=== PATIENT | male | born 2000 | race Two or more races ===

== ENCOUNTER 2019-04-10 22:03 | Emergency (ER) | payer MEDICAID ==
[~2019-04-10] VITALS: Ht 180.3 cm; Wt 79.4 kg
--- NOTE | 2019-04-10 22:42 | NUR ---
BIBMOTHER C.O "HAVING ITCHING ALL OVER MY BODY" -SOB NOTED. AOX4. VSS AMBULATORY
[2019-04-10] MEDS ORDERED: predniSONE 20 MG TABLET ONE (22:51)
[2019-04-10] MEDS ORDERED: diphenhydrAMINE HCL 50 MG CAPSULE ONE (22:51)
[2019-04-10] MEDS ORDERED: diphenhydrAMINE HCL 50 MG CAPSULE PO ONE (23:00)
[2019-04-10] MEDS ORDERED: predniSONE 10 MG TABLET PO ONE (23:00)
[2019-04-10] MEDS ORDERED: FAMOTIDINE/PF INJ 40 MG in IV D5W 250 ML IV ONE (23:30)
[2019-04-10] MEDS ORDERED: IV NS 0.9% 1,000 ML BAG IV ONE (23:30)
--- NOTE | 2019-04-10 23:30 | NUR ---
ADDENDUM: Intravenous End Time Documentation: Normal saline 1 liter (IV-WO) : start time: 2330 pm ; end time: 0030 (04/11/19): IV site: LAC #20; Port # 1
[2019-04-10] MEDS ORDERED: FAMOTIDINE/PF INJ 20 MG/2 ML VIAL IV ONE (23:31)
[2019-04-11 00:30] VITALS: BP 130/79
== END 2019-04-11 00:30 | disposition home or self-care (01) ==
LOC: ER 22:09
DX: T78.1XXA Other adverse food reactions, not elsewhere classified, initial encounter (principal); L50.9 Urticaria, unspecified; Z98.890 Other specified postprocedural states; X58.XXXA Exposure to other specified factors, initial encounter
CPT/HCPCS: 96365; 99283; J3490; J7030; J7512; Q0163

== ENCOUNTER 2019-04-11 19:17 | Emergency (ER) | payer MEDICAID ==
[~2019-04-11] VITALS: Ht 180.3 cm; Wt 79.4 kg
--- NOTE | 2019-04-11 19:36 | NUR ---
PT BIBF. C/O "SEEN YESTERDAY FOR SAME THING, WENT HOME, TOOK BENADRYL + PREDNISONE, STARTED BREAKING OUT SAME YESTERDAY" +ITCHING +REDNESS NOTED. AIRWAY CLEAR. -SOB. AOX4. AMBULATORY. VSS
[2019-04-11] MEDS ORDERED: FAMOTIDINE (20 MG) 20 MG TABLET ONE (19:42)
[2019-04-11] MEDS ORDERED: diphenhydrAMINE HCL 50 MG CAPSULE ONE (19:44)
[2019-04-11] MEDS ORDERED: diphenhydrAMINE HCL 25 MG CAPSULE PO ONE (20:00)
[2019-04-11] MEDS ORDERED: FAMOTIDINE (20 MG) 20 MG TABLET PO ONE (20:00)
[2019-04-11 20:41] VITALS: BP 133/71
== END 2019-04-11 20:42 | disposition home or self-care (01) ==
LOC: ER 19:20
DX: T78.40XA Allergy, unspecified, initial encounter (principal); L50.9 Urticaria, unspecified; Z98.890 Other specified postprocedural states; X58.XXXA Exposure to other specified factors, initial encounter
CPT/HCPCS: 99283; Q0163

== ENCOUNTER 2022-04-07 13:21 | Emergency (ER) | payer MEDICAID ==
[~2022-04-07] VITALS: Ht 177.8 cm; Wt 94.3 kg
[2022-04-07 14:44] VITALS: BP 138/70
[2022-04-07] MEDS ORDERED: hydrOXYzine 10 MG TABLET ONE ×2 (14:58→15:03)
[2022-04-07] MEDS ORDERED: hydrOXYzine 10 MG TABLET PO ONE (15:00)
[2022-04-07] MEDS ORDERED: CIPR500T5 PO (15:08)
[2022-04-07] MEDS ORDERED: DIPH25CA49 PO (15:08)
--- NOTE | 2022-04-07 15:21 | NUR ---
Patient discharged to home in stable condition. Written and verbal after care instructions given. Patient verbalizes understanding of instruction.
== END 2022-04-07 15:21 | disposition home or self-care (01) ==
LOC: ER 13:34
DX: R21 Rash and other nonspecific skin eruption (principal); Z79.899 Other long term (current) drug therapy
CPT/HCPCS: 99283; Q0177